=== PATIENT | male | born 1950 | race Caucasian/White ===

== ENCOUNTER 2019-10-30 05:45 | Day surgery (SDC) | payer MEDICARE, OTHER ==
[~2019-10-30] VITALS: Ht 172.7 cm; Wt 79.8 kg
[~2019-10-30 05:45] MED LIST: AMLO5TAB9 PO; ASCO100033 PO; ASPI-555 PO; ATOR40TA71 PO; CYAN200018 PO; DIGO125T71 PO; DIPH25TA51 PO; DONE5TAB33 PO; FENO160T16 PO; FISH1CAP63 PO; FOLI0.8T PO; FURO20TA4 PO; GLUC-252 PO; HYDR-2132 PO; INSLAN SQ; LOSA50TA64 PO; METF-444 PO; WARF-57 PO
[2019-10-30] MEDS ORDERED: SODIUM CHLORIDE 0.9% 1000ML 1,000 ML IV ONE (06:22)
[2019-10-30 06:27] VITALS: BP 153/76
[2019-10-30] MEDS ORDERED: DEXTROSE 50%-WATER 50 ML DISP.SYRIN IV ONE (06:42)
--- NOTE | 2019-10-30 06:51 | NUR ---
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
[2019-10-30 07:20] LABS: INR 1.15 (0.85-1.15)
[2019-10-30] MEDS ORDERED: PROPOFOL 10 MG/ML 20ML VIAL IV ONE (09:56)
[2019-10-30] MEDS ORDERED: EPHEDRINE SULFATE 50 MG/ML AMPULE ONE (09:58)
[2019-10-30 10:13] VITALS: BP 141/79
[2019-10-30 10:18] VITALS: BP 149/75
[2019-10-30 10:23] VITALS: BP 136/65
== END 2019-10-30 10:45 | disposition home or self-care (01) ==
LOC: ENDO 05:45 → DAH 05:45 → ENDO 10:45
PROVIDERS: ATTEND Internal Medicine Gastroenterology
DX: R19.5 Other fecal abnormalities (principal); D12.3 Benign neoplasm of transverse colon; K57.30 Diverticulosis of large intestine without perforation or abscess without bleeding; I10 Essential (primary) hypertension; E11.9 Type 2 diabetes mellitus without complications; E78.5 Hyperlipidemia, unspecified; M19.90 Unspecified osteoarthritis, unspecified site; I25.10 Atherosclerotic heart disease of native coronary artery without angina pectoris; Z79.4 Long term (current) use of insulin; Z79.82 Long term (current) use of aspirin; Z79.899 Other long term (current) drug therapy; Z86.73 Personal history of transient ischemic attack (TIA), and cerebral infarction without residual deficits
CPT/HCPCS: 36415; 45380; 45381; 82948 ×3; 85610; 88305; A4215; A4221; A4222; A4223; A4606; A4620; A4649; A4663; J2704; J3490; J7030; J7070

== ENCOUNTER 2021-04-22 09:00 | Observation (INO) | payer MEDICARE ==
[~2021-04-22] VITALS: Ht 177.8 cm; Wt 81.8 kg
[~2021-04-22 09:00] MED LIST changes: -AMLO5TAB9 PO; -ASPI-555 PO; -DIPH25TA51 PO; -DONE5TAB33 PO; -FOLI0.8T PO; +FOLI0.8T3 PO; -GLUC-252 PO; -HYDR-2132 PO; -INSLAN SQ; -LOSA50TA64 PO; -WARF-57 PO
[2021-04-22 11:40] LABS: BASOPHILS % (AUTO) 0.4 % (0.0-5.0); EOSINOPHILS % (AUTO) 1.2 % (0.0-8.0); HEMATOCRIT 33.6 % (42-54); LYMPHOCYTES % (AUTO) 18.3 % (21.0-51.0); MEAN CORPUSCULAR HGB CONC 33.9 g/dL (32.0-36.0); MEAN CORPUSCULAR VOLUME 94.4 fL (79-99); MONOCYTES % (AUTO) 9.8 % (3.0-13.0); NEUTROPHILS % (AUTO) 70.1 % (40.0-77.0); PLATELET COUNT (AUTO) 306 K/uL (130-400); RED BLOOD CELL COUNT(AUTO) 3.56 MIL/uL (4.50-6.20); RED CELL DISTRIBUTION WIDTH 12.3 % (11.0-15.5); WHITE BLOOD COUNT (AUTO) 9.5 K/uL (4.8-10.8)
[2021-04-22 11:45] LABS: APPEARANCE,URINE Clear (CLEAR); BILIRUBIN,URINE Negative (NEGATIVE); COLOR,URINE Yellow (YELLOW); GLUCOSE, URINE (UA) Negative (NEGATIVE); KETONES,URINE Trace mg/dL (NEGATIVE); LEUKOCYTE ESTERASE ,URINE Negative (NEGATIVE); NITRATE,URINE Negative (NEGATIVE); OCCULT BLOOD,URINE Negative (NEGATIVE); PROTEIN,URINE Negative (NEGATIVE)
[2021-04-22 11:46] LABS: CREATININE 1.4 mg/dL (0.5-1.5); POTASSIUM 3.5 mmol/L (3.5-5.1)
[2021-04-22 11:51] LABS: INR 1.09 (0.85-1.15); PROTHROMBIN TIME 11.8 SEC (9.6-11.6)
[2021-04-22 11:58] LABS: BACTERIA,URINE Rare /HPF (None Seen); CALCIUM OXALATE CRYSTALS,UR Few /LPF (None Seen); MUCUS,URINE Few LPF (None Seen); RBC,URINE 0-1 /HPF (0-1); SQUAMOUS EPITHELIAL CELL,UR Rare /HPF (0-2); WBC,URINE 0-1 /HPF (0-1)
[2021-04-22 11:59] LABS: URIC ACID CRYSTALS,URINE Few /LPF (None Seen)
[2021-04-23 11:01] VITALS: BP 153/67
[2021-04-23] MEDS ORDERED: PHARMACY COMMUNICATION MISC SCH (11:30)
[2021-04-23] MEDS ORDERED: INSLAN SQ (13:49)
[2021-04-23] MEDS ORDERED: APIX5TAB PO (13:49)
[2021-04-23] MEDS ORDERED: TRAM50TA4 PO (13:49)
[2021-04-23] MEDS ORDERED: GLUC-252 PO (13:49)
[2021-04-23] MEDS ORDERED: LOSA100T58 PO (13:49)
[2021-04-23] MEDS ORDERED: FLUT16H NASAL (13:49)
[2021-04-23] MEDS ORDERED: PREVAGEN PO (13:49)
[2021-04-23] MEDS ORDERED: DONE10TA43 PO (13:49)
[2021-04-23] MEDS ORDERED: AMLO-258 PO (13:49)
[2021-04-23] MEDS ORDERED: ACET-2893 PO (13:49)
[2021-04-23] MEDS ORDERED: [UNRECOGNIZED DRUG - OTHER] PO (13:49)
[2021-04-26] VITALS (19 sets, daily range): BP systolic 120–160; BP diastolic 60–84
[2021-04-26] MEDS ORDERED: 0.9%NACL 1000ML 1,000 ML IV ONE (08:52)
[2021-04-26] MEDS: CEFAZOLIN SODIUM 1 GM VIAL IVP SCH ×3 (11:10→22:04)
[2021-04-26] MEDS ORDERED: CEFAZOLIN SODIUM 1 GM VIAL IRRIG ONE (11:45)
[2021-04-26] MEDS ORDERED: CEFAZOLIN SODIUM 1 GM VIAL ONE ×2 (12:36→19:50)
[2021-04-26] MEDS ORDERED: LIDOCAINE PF 100MG/5ML (2%) SYRINGE 5ML ONE (13:12)
[2021-04-26] MEDS ORDERED: ROPIVACAINE 0.5% 5MG/ML 30ML IJ ONE (13:12)
[2021-04-26] MEDS ORDERED: SUCCINYLCHOLINE CHLORIDE 20 MG/ML 10 ML VIAL ONE (13:12)
[2021-04-26] MEDS ORDERED: ROCURONIUM 10MG/1ML SYR 10 MG/ML ML ONE ×2 (13:14→15:16)
[2021-04-26] MEDS ORDERED: FENTANYL CITRATE PF 50 MCG/1 ML 2ML VIAL ONE (13:14)
[2021-04-26] MEDS ORDERED: PROPOFOL 10 MG/ML 20ML VIAL IV ONE (13:14)
[2021-04-26] MEDS ORDERED: GLYCOPYRROLATE 1 MG/5 ML SYRINGE ONE (13:53)
[2021-04-26] MEDS ORDERED: MEPERIDINE-PF 25 MG/ML SYG ONE ×2 (16:28→17:23)
[2021-04-26] MEDS ORDERED: OXYCODONE HCL 5 MG TAB PO PRN (16:30)
[2021-04-26] MEDS ORDERED: TRAMADOL HCL 50 MG TABLET PO PRN (16:30)
[2021-04-26] MEDS ORDERED: LIDOCAINE HCL-MPF 1% 2ML VIAL IV PRN (16:30)
[2021-04-26] MEDS ORDERED: POTASSIUM CHLORIDE 10% ELIXIR 20 MEQ/15 ML UDCUP PO PRN (16:30)
[2021-04-26] MEDS ORDERED: CALCIUM CARB 500MG PO PRN (16:30)
[2021-04-26] MEDS ORDERED: DiphenhydrAMINE HCL 50 MG/ML VIAL IVP PRN (16:30)
[2021-04-26] MEDS ORDERED: FE FUMARATE/FA/MV, MIN COMB#15 1 TAB PO PRN (16:30)
[2021-04-26] MEDS ORDERED: ONDANSETRON 4MG INJ IVP PRN (16:30)
[2021-04-26] MEDS ORDERED: KETOROLAC 15MG/ML VIAL (15MG/ML) IV PRN (16:30)
[2021-04-26] MEDS ORDERED: KCL 20 MEQ ERTAB PO PRN (16:30)
[2021-04-26] MEDS: ACETAMINOPHEN 500 MG TABLET PO SCH ×2 (16:30→23:52)
[2021-04-26] MEDS ORDERED: TEMAZEPAM 15 MG CAPSULE PO PRN (16:30)
[2021-04-26] MEDS: INSULIN HUMULIN R 100 UNIT/ML 3ML SQ SCH ×2 (16:30→20:34)
[2021-04-26] MEDS ORDERED: POTASSIUM CHLORIDE 20MEQ/100ML 100 ML IV PRN (16:30)
[2021-04-26] MEDS: 0.9%NACL 1000ML 1,000 ML IV SCH ×2 (17:20→23:52)
[2021-04-26] MEDS: APIXABAN 5 MG TABLET PO SCH (18:48)
[2021-04-26] MEDS: FLUTICASONE PROPIONATE 50MCG/SPRAY 16 GM BOTTLE NS SCH (20:24)
[2021-04-26] MEDS: FISH OIL 1000 MG/CAP PO SCH (20:29)
[2021-04-26] MEDS: DIGOXIN 125 MCG TABLET PO SCH (20:29)
[2021-04-26] MEDS: LOSARTAN 100 MG TABLET PO SCH (20:30)
[2021-04-26] MEDS: ATORVASTATIN 40 MG TABLET PO SCH (20:30)
[2021-04-26] MEDS: PREGABALIN 25 MG CAP PO SCH (20:30)
[2021-04-26] MEDS: ASPIRIN 81 MG EC TAB PO SCH (20:31)
[2021-04-26] MEDS: FAMOTIDINE 20MG TAB PO SCH (20:31)
[2021-04-26] MEDS: FUROSEMIDE 20 MG TABLET PO SCH (20:31)
[2021-04-26] MEDS: CELECOXIB 200 MG CAP PO SCH (20:31)
[2021-04-26] MEDS: DONEPEZIL HCL 5 MG TAB PO SCH (20:31)
[2021-04-26] MEDS: OXYCODONE HCL 5 MG TAB PO PRN (20:38)
[2021-04-26] MEDS: INSULIN GLARGINE 100 UNITS/ML 10 ML VIAL SQ SCH (22:01)
[2021-04-27] MEDS: CEFAZOLIN SODIUM 1 GM VIAL IVP SCH (04:30)
[2021-04-27 04:42] VITALS: BP 142/65
[2021-04-27 04:43] LABS: HEMATOCRIT 28.7 % (42-54); MEAN CORPUSCULAR HEMOGLOBIN 31.6 pg (27.0-33.0); MEAN CORPUSCULAR HGB CONC 34.5 g/dL (32.0-36.0); MEAN CORPUSCULAR VOLUME 91.7 fL (79-99); RED BLOOD CELL COUNT(AUTO) 3.13 MIL/uL (4.50-6.20); RED CELL DISTRIBUTION WIDTH 12.4 % (11.0-15.5); WHITE BLOOD COUNT (AUTO) 13.4 K/uL (4.8-10.8)
[2021-04-27 04:50] LABS: CREATININE 1.4 mg/dL (0.5-1.5); POTASSIUM 3.4 mmol/L (3.5-5.1)
[2021-04-27] MEDS: INSULIN HUMULIN R 100 UNIT/ML 3ML SQ SCH ×5 (06:18→21:00)
[2021-04-27 07:50] VITALS: BP 123/65
[2021-04-27] MEDS: AMLODIPINE 5 MG TAB PO SCH (08:34)
[2021-04-27] MEDS: FOLIC ACID 1 MG TABLET PO SCH (08:35)
[2021-04-27] MEDS: POLYETHYLENE GLYCOL 3350 17 GM POWD.PACK PO SCH (08:35)
[2021-04-27] MEDS: FENOFIBRATE NANOCRYSTALLIZED 145 MG TAB PO SCH (08:35)
[2021-04-27] MEDS: TAMSULOSIN HCL 0.4 MG CAP.ER.24H PO SCH (08:35)
[2021-04-27] MEDS: APIXABAN 5 MG TABLET PO SCH ×3 (08:35→21:10)
[2021-04-27] MEDS: ASPIRIN 81 MG EC TAB PO SCH ×3 (08:35→21:10)
[2021-04-27] MEDS: METFORMIN HCL 500 MG TABLET PO SCH ×2 (08:36→17:38)
[2021-04-27] MEDS: LOSARTAN 100 MG TABLET PO SCH ×3 (08:36→21:09)
[2021-04-27] MEDS: CELECOXIB 200 MG CAP PO SCH ×3 (08:36→21:09)
[2021-04-27] MEDS: PREGABALIN 25 MG CAP PO SCH ×3 (08:36→21:10)
[2021-04-27] MEDS: FUROSEMIDE 20 MG TABLET PO SCH ×3 (08:37→21:10)
[2021-04-27] MEDS: FLUTICASONE PROPIONATE 50MCG/SPRAY 16 GM BOTTLE NS SCH ×2 (08:38→21:00)
[2021-04-27] MEDS: INSULIN GLARGINE 100 UNITS/ML 10 ML VIAL SQ SCH ×2 (08:49→21:19)
[2021-04-27 10:56] VITALS: BP 125/63
[2021-04-27] MEDS: 0.9%NACL 1000ML 1,000 ML IV SCH (11:30)
[2021-04-27] MEDS: OXYCODONE HCL 5 MG TAB PO PRN (15:13)
[2021-04-27] MEDS: ACETAMINOPHEN 500 MG TABLET PO SCH ×2 (15:13→21:13)
[2021-04-27 16:31] VITALS: BP 127/62
[2021-04-27 20:20] VITALS: BP 123/66
[2021-04-27] MEDS: FAMOTIDINE 20MG TAB PO SCH ×2 (21:00→21:10)
[2021-04-27] MEDS: FISH OIL 1000 MG/CAP PO SCH ×2 (21:00→21:10)
[2021-04-27] MEDS: ATORVASTATIN 40 MG TABLET PO SCH ×2 (21:00→21:10)
[2021-04-27] MEDS: DONEPEZIL HCL 5 MG TAB PO SCH ×2 (21:00→21:09)
[2021-04-27] MEDS: DIGOXIN 125 MCG TABLET PO SCH (21:09)
[2021-04-28] MEDS: ACETAMINOPHEN 500 MG TABLET PO SCH (05:11)
[2021-04-28] MEDS: METFORMIN HCL 500 MG TABLET PO SCH (08:45)
[2021-04-28] MEDS: LOSARTAN 100 MG TABLET PO SCH (08:45)
[2021-04-28] MEDS: TAMSULOSIN HCL 0.4 MG CAP.ER.24H PO SCH (08:45)
[2021-04-28] MEDS: FENOFIBRATE NANOCRYSTALLIZED 145 MG TAB PO SCH (08:45)
[2021-04-28] MEDS: FOLIC ACID 1 MG TABLET PO SCH (08:45)
[2021-04-28] MEDS: PREGABALIN 25 MG CAP PO SCH (08:46)
[2021-04-28] MEDS: APIXABAN 5 MG TABLET PO SCH (08:46)
[2021-04-28] MEDS: POLYETHYLENE GLYCOL 3350 17 GM POWD.PACK PO SCH (08:46)
[2021-04-28] MEDS: FUROSEMIDE 20 MG TABLET PO SCH (08:46)
[2021-04-28] MEDS: CELECOXIB 200 MG CAP PO SCH (08:46)
[2021-04-28] MEDS: ASPIRIN 81 MG EC TAB PO SCH (08:46)
[2021-04-28] MEDS: FLUTICASONE PROPIONATE 50MCG/SPRAY 16 GM BOTTLE NS SCH (08:47)
[2021-04-28] MEDS: AMLODIPINE 5 MG TAB PO SCH (08:47)
[2021-04-28] MEDS: INSULIN GLARGINE 100 UNITS/ML 10 ML VIAL SQ SCH (08:49)
[2021-04-28] MEDS: OXYCODONE HCL 5 MG TAB PO PRN (08:59)
[2021-04-28] MEDS ORDERED: HYDR-4060 PO (10:54)
[2021-04-29] MEDS ORDERED: BISACODYL 10 MG SUPP.RECT RC PRN (16:30)
== END 2021-04-28 14:30 | disposition home health service (06) ==
LOC: EDSTATUS 09:00 → DAHIP 04-26 07:35 → 3AH 04-26 17:47
PROVIDERS: ADMIT Orthopaedic Surgery; ATTEND Orthopaedic Surgery
DX: M75.41 Impingement syndrome of right shoulder (principal); Z20.822 Contact with and (suspected) exposure to COVID-19; T84.84XA Pain due to internal orthopedic prosthetic devices, implants and grafts, initial encounter; G89.29 Other chronic pain; M25.511 Pain in right shoulder; I10 Essential (primary) hypertension; E11.9 Type 2 diabetes mellitus without complications; E78.5 Hyperlipidemia, unspecified; M06.9 Rheumatoid arthritis, unspecified; I48.91 Unspecified atrial fibrillation; D64.9 Anemia, unspecified; Z96.611 Presence of right artificial shoulder joint; Z79.01 Long term (current) use of anticoagulants; Z86.73 Personal history of transient ischemic attack (TIA), and cerebral infarction without residual deficits; Z96.619 Presence of unspecified artificial shoulder joint; Z79.899 Other long term (current) drug therapy; Z98.890 Other specified postprocedural states
CPT/HCPCS: 23473; 36415 ×2; 73030; 80048 ×2; 81001; 82948 ×7; 85025; 85027; 85610; 87088; 87635; 87641; 96361; 96374; 96375; 96376; 97039 ×2; 97116 ×3; 97161; 97530; A4215; A4221; A4222; A4223; A4565; A4649 ×3; A4663; A4930; A6206; C1713; C1776; G0168; G0378 ×44; G8978; G8979; G8980; G8981; G8982; G8983; J0330; J0690 ×5; J1815 ×3; J1885; J2001; J2175 ×2; J2704; J2795; J3490; J7030 ×2; J3010